=== PATIENT | female | born 1955 | race Asian ===

== ENCOUNTER 2020-02-26 09:00 | Outpatient (CLI) | payer MEDICARE ==
[2020-02-26 10:19] LABS: BASOPHILS # (AUTO) 0.11 x10^3/uL (0-0.1); BASOPHILS % (AUTO) 1 % (0-1); EOSINOPHILS # (AUTO) 0.41 x10^3/uL (0-0.4); EOSINOPHILS % (AUTO) 4 % (1-7); LYMPHOCYTES % (AUTO) 26 % (22-44); MD NO; MEAN CORPUSCULAR HGB CONC 33.3 g/dL (32.4-35.8); MEAN CORPUSCULAR VOLUME 90.2 fL (80-100); MEAN PLATELET VOLUME 7.9 fL (7.4-10.4); MONOCYTES # (AUTO) 0.64 x10^3/uL (0.2-0.8); MONOCYTES % (AUTO) 6 % (2-9); NEUTROPHILS # (AUTO) 6.69 x10^3/uL (1.8-6.8); NEUTROPHILS % (AUTO) 63 % (42-75); PLATELET COUNT 199 x10^3/uL (130-400); RED CELL DISTRIBUTION WIDTH 13.1 % (9.6-15.2)
[2020-02-26 10:24] LABS: INTERNATIONAL NORMALIZED RATIO 0.93 (0.93-1.1); PROTHROMBIN TIME 9.9 Seconds (9.6-11.5)
[2020-02-26 10:27] LABS: ALBUMIN 3.5 g/dL (3.4-5.0); ANION GAP 11 mmol/L (5-15); CALCIUM 9.2 mg/dL (8.5-10.1); CHLORIDE 102 mmol/L (98-107)
[2020-02-26 10:32] LABS: ALANINE AMINOTRANSFERASE 22 U/L (12-78); ALKALINE PHOSPHATASE 114 U/L (45-117); BILIRUBIN,TOTAL 0.4 mg/dL (0.2-1.0); TOTAL PROTEIN 8.2 g/dL (6.4-8.2)
[2020-02-26] MEDS ORDERED: FURO40TA6 PO (16:42)
[2020-02-26] MEDS ORDERED: CHLO25TA PO (16:42)
[2020-02-26] MEDS ORDERED: AMLO-150 PO (16:42)
[2020-02-26] MEDS ORDERED: CARV12.52 PO (16:42)
[2020-02-26] MEDS ORDERED: GLYB5TAB3 PO (16:42)
[2020-02-26] MEDS ORDERED: LEVO175C PO (16:42)
[2020-02-26] MEDS ORDERED: ASPI-496 PO (16:42)
[2020-02-26] MEDS ORDERED: SODI5POW2 PO (16:42)
== END 2020-02-26 23:59 | disposition home or self-care (01) ==
LOC: STAR 09:00
PROVIDERS: ATTEND Surgery
DX: Z01.818 Encounter for other preprocedural examination (principal); Z11.59 Encounter for screening for other viral diseases; N18.4 Chronic kidney disease, stage 4 (severe)
CPT/HCPCS: 36415; 80053; 85025; 85610; 85730; 93005; U0001

== ENCOUNTER 2020-03-01 13:03 | Observation (INO) | payer MEDICARE ==
[~2020-03-01] VITALS: Ht 167.6 cm; Wt 83.0 kg
[~2020-03-01 13:03] MED LIST: AMLO-150 PO; ASPI-496 PO; CARV12.52 PO; CHLO25TA PO; FURO40TA6 PO; GLYB5TAB3 PO; LEVO175C PO; SODI5POW2 PO
[2020-03-01] MEDS ORDERED: SODIUM CHLORIDE 0.9% 1,000 ML IV SCH (13:28)
[2020-03-01] MEDS ORDERED: CHLORHEXIDINE 15 ML UDC ONE (13:46)
[2020-03-01] MEDS ORDERED: PROTAMINE SULFATE 10 MG/ML, 5ML ONE (14:04)
[2020-03-01] MEDS ORDERED: LIDOCAINE 1%, 20ML ONE (14:04)
[2020-03-01] MEDS ORDERED: THROMBIN 5,000 UNIT VIAL TP ONE (14:04)
[2020-03-01] MEDS ORDERED: HEPARIN 1,000 UNITS/ML, 10ML ONE (14:04)
[2020-03-01] MEDS ORDERED: PAPAVERINE 30 MG/ML, 2ML ONE (14:04)
[2020-03-01] MEDS ORDERED: BUPIVACAINE/PF-EPI 0.5% 1:200K ONE (14:04)
[2020-03-01] MEDS ORDERED: BACITRACIN 50,000 UNIT ONE (14:05)
[2020-03-01] MEDS ORDERED: CHLORHEXIDINE 15 ML UDC MM STA (14:23)
[2020-03-01] MEDS ORDERED: FENTANYL PF 100 MCG/2ML ONE (14:40)
[2020-03-01] MEDS ORDERED: SUCCINYLCHOLINE 20 MG/ML, 10ML ONE (15:13)
[2020-03-01] MEDS ORDERED: ONDANSETRON 2MG/ML, 2ML ONE (15:13)
[2020-03-01] MEDS ORDERED: CEFAZOLIN 1,000 MG ONE (15:13)
[2020-03-01] MEDS ORDERED: PROPOFOL 10 MG/ML, 20ML ONE (15:13)
[2020-03-01] MEDS ORDERED: GLYCOPYRROLATE 0.2MG/1ML, 5ML ONE (15:13)
[2020-03-01] MEDS ORDERED: DEXAMETHASONE 4 MG/ML, 1ML ONE (15:13)
[2020-03-01] MEDS ORDERED: SUGAMMADEX 200 MG/2 ML IVPush ONE (15:13)
[2020-03-01] MEDS ORDERED: ROCURONIUM 10MG/ML,5ML ONE (15:13)
[2020-03-01] MEDS ORDERED: NEOSTIGMINE 1 MG/ML, 10ML ONE (15:13)
[2020-03-01] MEDS ORDERED: BUPIVACAINE/PF 0.25% ONE (15:26)
[2020-03-01] MEDS ORDERED: HEPARIN 1,000 UNITS/ML, 10ML IV ONE (15:49)
[2020-03-01] MEDS ORDERED: FENTANYL PF 100 MCG/2ML IV PRN (17:00)
[2020-03-01] MEDS ORDERED: PROMETHAZINE 25 MG/ML, 1ML IV PRN (17:00)
[2020-03-01] MEDS ORDERED: HYDROmorphone 1 MG/ML, 1ML INJ IVPush PRN (17:00)
[2020-03-01] MEDS ORDERED: LABETALOL 5MG/ML, 20ML IV PRN (17:00)
[2020-03-01] MEDS ORDERED: ALBUTEROL SULFATE 2.5 MG/3 ML NPPB PRN (17:00)
[2020-03-01] MEDS ORDERED: OXYcodone 5 MG/5 ML ORAL.SOL UDC PO PRN (17:00)
[2020-03-01] MEDS ORDERED: hydrALAzine 20 MG/ML, 1ML IV PRN (17:00)
[2020-03-01] MEDS ORDERED: OXYcodone 5 MG/5 ML ORAL.SOL UDC ONE (18:00)
[2020-03-01] MEDS ORDERED: MORPHINE SULFATE 4 MG/ML, 1ML IVPush PRN (18:30)
[2020-03-01] MEDS ORDERED: ONDANSETRON 2MG/ML, 2ML IVPush PRN (18:30)
[2020-03-01] MEDS: HYDROcodone/APAP 5/325 TABLET PO PRN (19:15)
[2020-03-01] MEDS: GlyBURIDE 5 MG TABLET PO SCH (23:01)
[2020-03-01 23:57] VITALS: BP 131/66
[2020-03-02] MEDS: HYDROcodone/APAP 5/325 TABLET PO PRN ×2 (01:35→07:56)
[2020-03-02 03:55] VITALS: BP 126/61
[2020-03-02] MEDS ORDERED: ASPIRIN 81 MG TABLET EC PO SCH (06:00)
[2020-03-02] MEDS ORDERED: CARVEDILOL 12.5 MG TABLET PO SCH (06:00)
[2020-03-02] MEDS ORDERED: LEVOTHYROXINE 175 MCG TABLET PO SCH (06:00)
[2020-03-02 06:57] VITALS: BP 117/71
[2020-03-02] MEDS: GlyBURIDE 5 MG TABLET PO SCH (07:55)
[2020-03-02] MEDS ORDERED: FUROSEMIDE 40 MG TABLET PO SCH (09:00)
[2020-03-02] MEDS ORDERED: CHLORTHALIDONE 25 MG TABLET PO SCH (09:00)
[2020-03-02] MEDS ORDERED: SODIUM ZIRCONIUM CYCLOSILICATE 5 GM PO SCH (09:00)
[2020-03-02] MEDS ORDERED: AMLODIPINE 5 MG TABLET PO SCH (09:00)
[2020-03-02 10:33] VITALS: BP 124/67
[2020-03-02] MEDS ORDERED: HYDR-3240 PO (10:45)
[2020-03-02] MEDS ORDERED: ONDANSETRON ODT 4 MG PO ONE (11:30)
== END 2020-03-02 11:35 | disposition home or self-care (01) ==
LOC: OR 13:03 → 4NE 18:19 → OR 22:01 → 4NE 22:02 → DCLOUNGE 03-02 10:55
PROVIDERS: ADMIT Surgery; ATTEND Surgery
DX: I12.0 Hypertensive chronic kidney disease with stage 5 chronic kidney disease or end stage renal disease (principal); E11.22 Type 2 diabetes mellitus with diabetic chronic kidney disease; N18.6 End stage renal disease; I25.10 Atherosclerotic heart disease of native coronary artery without angina pectoris; D64.9 Anemia, unspecified; E78.5 Hyperlipidemia, unspecified; I48.91 Unspecified atrial fibrillation; E03.9 Hypothyroidism, unspecified; B19.20 Unspecified viral hepatitis C without hepatic coma; Z79.4 Long term (current) use of insulin; Z99.2 Dependence on renal dialysis; Z95.1 Presence of aortocoronary bypass graft
CPT/HCPCS: 36819; 82962; G0378; J0690; J1100; J1644; J2405; J2704; J2720; J3010; J3490; J7030; Q0162; J2710; J0330; J2440